=== PATIENT | female | born 1950 | race Caucasian/White ===

== ENCOUNTER 2022-08-20 08:28 | Outpatient (CLI) | payer MEDICARE | END 2022-08-20 08:29 | disposition home or self-care (01) | LOC: BICCT 08:28 | PROVIDERS: ATTEND Internal Medicine | DX: R10.13 Epigastric pain (principal); R11.0 Nausea; I10 Essential (primary) hypertension; R91.1 Solitary pulmonary nodule | CPT/HCPCS: 74177; 82565 ==